=== PATIENT | male | born 1950 | race Caucasian/White ===

== ENCOUNTER 2022-04-17 10:04 | Inpatient (IN) | payer MEDICARE ==
[2022-04-17] MEDS ORDERED: Acetaminophen 325 MG TAB PO PRN (11:02)
[2022-04-17] MEDS ORDERED: Ondansetron PF 4 MG/2 ML Vial IVP PRN (11:02)
[2022-04-17 11:09] VITALS: BMI 34.9
[2022-04-17 11:57] LABS: Anion Gap 20 mmol/L (10-20); BUN (Urea Nitrogen) 25 mg/dL (8.4-25.7); Calc. Creatinine Clearance 126 mL/min (70-130); Calcium 8.8 mg/dL (7.8-10.44); Carbon Dioxide 22 mmol/L (23-31); Chloride 97 mmol/L (98-107); Estimated GFR 96; Glucose 118 mg/dL (80-115); Magnesium 2.1 mg/dL (1.6-2.6); Potassium 3.6 mmol/L (3.5-5.1); Sodium 135 mmol/L (136-145)
[2022-04-17] MEDS ORDERED: Potassium Chloride 20 MEQ TAB PO SCH ×2 (12:00→14:15)
[2022-04-17] MEDS: Furosemide 20 MG/2 ML VIAL SLOW IVP SCH (14:00)
[2022-04-17 16:16] LABS: Anion Gap 17 mmol/L (10-20); BUN (Urea Nitrogen) 25 mg/dL (8.4-25.7); Calc. Creatinine Clearance 131 mL/min (70-130); Calcium 8.9 mg/dL (7.8-10.44); Carbon Dioxide 25 mmol/L (23-31); Chloride 98 mmol/L (98-107); Estimated GFR 97; Glucose 112 mg/dL (80-115); Potassium 3.6 mmol/L (3.5-5.1); Sodium 136 mmol/L (136-145)
[2022-04-17] MEDS: Potassium Chloride 20 MEQ TAB PO SCH ×2 (21:30→23:31)
[2022-04-17] MEDS: Apixaban 5 MG TAB PO SCH (21:33)
[2022-04-18 01:33] LABS: Anion Gap 16 mmol/L (10-20); BUN (Urea Nitrogen) 26 mg/dL (8.4-25.7); Calc. Creatinine Clearance 125 mL/min (70-130); Calcium 9.1 mg/dL (7.8-10.44); Carbon Dioxide 26 mmol/L (23-31); Chloride 97 mmol/L (98-107); Estimated GFR 96; Glucose 113 mg/dL (80-115); Potassium 4.1 mmol/L (3.5-5.1); Sodium 135 mmol/L (136-145)
[2022-04-18 05:26] LABS: Anion Gap 16 mmol/L (10-20); BUN (Urea Nitrogen) 25 mg/dL (8.4-25.7); Calc. Creatinine Clearance 135 mL/min (70-130); Calcium 8.9 mg/dL (7.8-10.44); Carbon Dioxide 25 mmol/L (23-31); Chloride 98 mmol/L (98-107); Estimated GFR 98; Glucose 112 mg/dL (80-115); Potassium 4.1 mmol/L (3.5-5.1); Sodium 135 mmol/L (136-145)
[2022-04-18 05:37] LABS: #Basophils 0.1 10x3/uL (0.0-0.2); #Eosinphils 0.1 10x3/uL (0.0-0.5); #Monocytes 0.8 10x3/uL (0.0-1.1); %Basophils 0.6 % (0.0-2.0); %Eosinophils 0.7 % (0.0-6.0); %Lymphocytes 10.4 % (18.0-47.0); %Neutrophils 78.7 % (40.0-75.0); Hemoglobin 13.3 g/dL (13.5-17.5); Mean Corpuscular Hemoglobin 28.4 pg (27.0-33.0); Mean Corpuscular Volume 86.1 fl (81.2-95.1); Platelet Count 468 10x3/uL (150-450); RBC Distribution Width 12.7 % (11.5-14.5); Red Blood Cell (RBC) Count 4.68 10x6/uL (4.32-5.72); White Blood Cell (WBC) Count 8.8 10x3/uL (3.5-10.5)
[2022-04-18] MEDS: Furosemide 20 MG/2 ML VIAL SLOW IVP SCH ×2 (06:49→15:01)
[2022-04-18] MEDS ORDERED: Potassium Chloride 20 MEQ TAB PO SCH (08:15)
[2022-04-18] MEDS ORDERED: Digoxin 0.5 MG/2 ML AMP SLOW IVP SCH (08:15)
[2022-04-18] MEDS: Apixaban 5 MG TAB PO SCH ×2 (09:09→21:11)
[2022-04-18] MEDS: Diltiazem 125 MG, Admixture Fee 1 EACH in Sodium Chloride 0.9% 100 ML IVPB SCH (12:40)
[2022-04-19 04:50] LABS: #Basophils 0.1 10x3/uL (0.0-0.2); #Eosinphils 0.1 10x3/uL (0.0-0.5); #Monocytes 0.8 10x3/uL (0.0-1.1); #Neutrophils 6.5 10x3/uL (1.5-8.4); %Basophils 0.8 % (0.0-2.0); %Eosinophils 1.4 % (0.0-6.0); %Lymphocytes 13.5 % (18.0-47.0); %Monocytes 9.1 % (0.0-10.0); Hemoglobin 13.8 g/dL (13.5-17.5); Mean Corpuscular HGB CONC 32.7 g/dL (32.0-36.0); Mean Corpuscular Hemoglobin 28.3 pg (27.0-33.0); Mean Corpuscular Volume 86.5 fl (81.2-95.1); Mean Platelet Volume 8.7 fl (7.4-10.4); Platelet Count 460 10x3/uL (150-450); RBC Distribution Width 12.8 % (11.5-14.5); Red Blood Cell (RBC) Count 4.88 10x6/uL (4.32-5.72); White Blood Cell (WBC) Count 8.7 10x3/uL (3.5-10.5)
[2022-04-19 05:06] LABS: Anion Gap 16 mmol/L (10-20); BUN (Urea Nitrogen) 24 mg/dL (8.4-25.7); Calc. Creatinine Clearance 128 mL/min (70-130); Calcium 8.8 mg/dL (7.8-10.44); Carbon Dioxide 26 mmol/L (23-31); Chloride 100 mmol/L (98-107); Estimated GFR 97; Glucose 104 mg/dL (80-115); Sodium 138 mmol/L (136-145)
[2022-04-19] MEDS: Furosemide 20 MG/2 ML VIAL SLOW IVP SCH (06:15)
[2022-04-19] MEDS ORDERED: Digoxin 0.25 MG TAB PO SCH ×2 (09:00→15:00)
[2022-04-19] MEDS: Apixaban 5 MG TAB PO SCH ×2 (09:30→21:10)
[2022-04-19] MEDS: Diltiazem 125 MG, Admixture Fee 1 EACH in Sodium Chloride 0.9% 100 ML IVPB SCH (18:01)
[2022-04-20 05:02] LABS: #Basophils 0.1 10x3/uL (0.0-0.2); #Eosinphils 0.1 10x3/uL (0.0-0.5); #Monocytes 0.9 10x3/uL (0.0-1.1); %Basophils 0.7 % (0.0-2.0); %Eosinophils 0.5 % (0.0-6.0); %Lymphocytes 9.7 % (18.0-47.0); %Monocytes 8.2 % (0.0-10.0); %Neutrophils 80.5 % (40.0-75.0); Hemoglobin 13.8 g/dL (13.5-17.5); Mean Corpuscular HGB CONC 32.9 g/dL (32.0-36.0); Mean Corpuscular Hemoglobin 28.5 pg (27.0-33.0); Mean Corpuscular Volume 86.6 fl (81.2-95.1); Mean Platelet Volume 8.9 fl (7.4-10.4); Platelet Count 447 10x3/uL (150-450); RBC Distribution Width 12.9 % (11.5-14.5); Red Blood Cell (RBC) Count 4.85 10x6/uL (4.32-5.72); White Blood Cell (WBC) Count 11.2 10x3/uL (3.5-10.5)
[2022-04-20 05:13] LABS: Digoxin 0.56 ng/mL (0.8-2.0)
[2022-04-20 05:15] LABS: Anion Gap 16 mmol/L (10-20); BUN (Urea Nitrogen) 19 mg/dL (8.4-25.7); Calc. Creatinine Clearance 137 mL/min (70-130); Calcium 8.9 mg/dL (7.8-10.44); Carbon Dioxide 26 mmol/L (23-31); Chloride 100 mmol/L (98-107); Estimated GFR 98; Glucose 101 mg/dL (80-115); Sodium 138 mmol/L (136-145)
[2022-04-20] MEDS ORDERED: Digoxin 0.25 MG TAB PO SCH (09:00)
[2022-04-20 10:27] LABS: Magnesium 2.2 mg/dL (1.6-2.6)
[2022-04-20] MEDS ORDERED: Midodrine HCl 2.5 MG TAB PO SCH (11:15)
[2022-04-20] MEDS ORDERED: Diltiazem 125 MG, Admixture Fee 1 EACH in Sodium Chloride 0.9% 100 ML IVPB SCH (11:58)
[2022-04-20] MEDS: Furosemide 20 MG/2 ML VIAL SLOW IVP SCH (13:54)
[2022-04-20] MEDS: Midodrine HCl 2.5 MG TAB PO SCH (20:42)
[2022-04-21 04:33] LABS: #Basophils 0.1 10x3/uL (0.0-0.2); %Basophils 0.5 % (0.0-2.0); %Eosinophils 0.1 % (0.0-6.0); %Lymphocytes 7.3 % (18.0-47.0); %Monocytes 7.1 % (0.0-10.0); %Neutrophils 84.6 % (40.0-75.0); Mean Corpuscular HGB CONC 33.2 g/dL (32.0-36.0); Mean Corpuscular Hemoglobin 28.5 pg (27.0-33.0); Mean Corpuscular Volume 85.9 fl (81.2-95.1); Platelet Count 406 10x3/uL (150-450); RBC Distribution Width 12.9 % (11.5-14.5); Red Blood Cell (RBC) Count 4.91 10x6/uL (4.32-5.72); White Blood Cell (WBC) Count 14.2 10x3/uL (3.5-10.5)
[2022-04-21 04:46] LABS: Anion Gap 15 mmol/L (10-20); BUN (Urea Nitrogen) 17 mg/dL (8.4-25.7); Calc. Creatinine Clearance 128 mL/min (70-130); Calcium 8.9 mg/dL (7.8-10.44); Carbon Dioxide 27 mmol/L (23-31); Chloride 99 mmol/L (98-107); Estimated GFR 97; Glucose 102 mg/dL (80-115); Potassium 4.1 mmol/L (3.5-5.1); Sodium 137 mmol/L (136-145)
[2022-04-21 04:48] LABS: Digoxin 0.84 ng/mL (0.8-2.0)
[2022-04-21] MEDS: Furosemide 20 MG/2 ML VIAL SLOW IVP SCH (06:15)
[2022-04-21] MEDS ORDERED: Furosemide 20 MG/2 ML VIAL SLOW IVP SCH (10:15)
[2022-04-21] MEDS: Midodrine HCl 2.5 MG TAB PO SCH ×3 (10:45→23:53)
[2022-04-21] MEDS: Digoxin 0.25 MG TAB PO SCH (10:46)
[2022-04-21] MEDS ORDERED: Diltiazem 125 MG in Sodium Chloride 0.9% 100 ML IVPB SCH (11:15)
[2022-04-21] MEDS: Furosemide 40 MG/4 ML VIAL SLOW IVP SCH (15:25)
[2022-04-22] MEDS: Furosemide 40 MG/4 ML VIAL SLOW IVP SCH (06:55)
[2022-04-22 07:09] LABS: #Basophils 0.1 10x3/uL (0.0-0.2); #Eosinphils 0.1 10x3/uL (0.0-0.5); #Monocytes 0.9 10x3/uL (0.0-1.1); #Neutrophils 6.4 10x3/uL (1.5-8.4); %Basophils 1.1 % (0.0-2.0); %Eosinophils 0.7 % (0.0-6.0); %Lymphocytes 15.1 % (18.0-47.0); %Monocytes 10.2 % (0.0-10.0); %Neutrophils 72.4 % (40.0-75.0); Hemoglobin 13.6 g/dL (13.5-17.5); Mean Corpuscular HGB CONC 32.6 g/dL (32.0-36.0); Mean Corpuscular Hemoglobin 28.1 pg (27.0-33.0); Mean Corpuscular Volume 86.2 fl (81.2-95.1); Platelet Count 360 10x3/uL (150-450); RBC Distribution Width 13.1 % (11.5-14.5); Red Blood Cell (RBC) Count 4.84 10x6/uL (4.32-5.72); White Blood Cell (WBC) Count 8.9 10x3/uL (3.5-10.5)
[2022-04-22 07:11] LABS: Anion Gap 17 mmol/L (10-20); BUN (Urea Nitrogen) 18 mg/dL (8.4-25.7); Calc. Creatinine Clearance 135 mL/min (70-130); Calcium 8.6 mg/dL (7.8-10.44); Carbon Dioxide 27 mmol/L (23-31); Chloride 99 mmol/L (98-107); Estimated GFR 98; Glucose 97 mg/dL (80-115); Potassium 3.7 mmol/L (3.5-5.1); Sodium 139 mmol/L (136-145)
[2022-04-22 07:27] LABS: Digoxin 0.58 ng/mL (0.8-2.0)
[2022-04-22] MEDS ORDERED: Furosemide 40 MG/4 ML VIAL SLOW IVP SCH (08:00)
[2022-04-22] MEDS: Digoxin 0.25 MG TAB PO SCH (08:17)
[2022-04-22] MEDS: Midodrine HCl 2.5 MG TAB PO SCH ×3 (08:18→21:32)
[2022-04-22] MEDS ORDERED: Sodium Bicarbonate 2.5 MEQ/5 ML VIAL ONE (10:11)
[2022-04-22] MEDS ORDERED: Lidocaine 1% PF 5 ML VIAL ONE (10:11)
[2022-04-22] MEDS: Furosemide 100 MG/10 ML VIAL SLOW IVP SCH (13:16)
[2022-04-23 06:27] LABS: Anion Gap 14 mmol/L (10-20); BUN (Urea Nitrogen) 18 mg/dL (8.4-25.7); Calc. Creatinine Clearance 134 mL/min (70-130); Calcium 8.5 mg/dL (7.8-10.44); Carbon Dioxide 29 mmol/L (23-31); Chloride 99 mmol/L (98-107); Estimated GFR 98; Glucose 101 mg/dL (80-115); Magnesium 2.1 mg/dL (1.6-2.6); Potassium 3.2 mmol/L (3.5-5.1); Sodium 139 mmol/L (136-145)
[2022-04-23] MEDS: Furosemide 100 MG/10 ML VIAL SLOW IVP SCH (06:40)
[2022-04-23] MEDS ORDERED: Potassium Chloride 20 MEQ TAB PO SCH ×3 (08:00→17:00)
[2022-04-23] MEDS: Midodrine HCl 2.5 MG TAB PO SCH ×2 (08:34→14:14)
[2022-04-23] MEDS: Digoxin 0.25 MG TAB PO SCH (08:34)
[2022-04-23 12:28] LABS: Potassium 3.9 mmol/L (3.5-5.1)
[2022-04-23] MEDS ORDERED: Furosemide 40 MG TAB PO SCH (14:00)
[2022-04-23 14:26] VITALS: BP 104/59; TEMP 97.9
[2022-04-23] MEDS ORDERED: Apixaban 5 MG TAB PO SCH (21:00)
== END 2022-04-23 15:30 | disposition home or self-care (01) | DRG 291 ==
LOC: CSHTELE 10:04
PROVIDERS: ADMIT Internal Medicine; ATTEND Internal Medicine
PROC: 0W993ZZ Drainage of Right Pleural Cavity, Percutaneous Approach (ICD-10-PCS; principal; 2022-04-22)
DX: I11.0 Hypertensive heart disease with heart failure (principal); I50.33 Acute on chronic diastolic (congestive) heart failure; J96.01 Acute respiratory failure with hypoxia; I48.19 Other persistent atrial fibrillation; J91.8 Pleural effusion in other conditions classified elsewhere; G47.33 Obstructive sleep apnea (adult) (pediatric); I95.9 Hypotension, unspecified; I45.81 Long QT syndrome; Z79.899 Other long term (current) drug therapy; Z87.891 Personal history of nicotine dependence; Z79.01 Long term (current) use of anticoagulants; Z99.89 Dependence on other enabling machines and devices; J44.9 Chronic obstructive pulmonary disease, unspecified
CPT/HCPCS: 32555; 36415; 71045; 71046; 80048; 80162; 83735; 85025; 93005; 93010; 94760; J1160; J1650; J1940; J3490; U0003; U0005

== ENCOUNTER 2022-05-26 11:28 | Outpatient (CLI) | payer MEDICARE | END 2022-05-26 11:29 | disposition home or self-care (01) | LOC: CSHRAD 11:28 | PROVIDERS: ATTEND Specialist | DX: R06.02 Shortness of breath (principal) | CPT/HCPCS: 71046 ==

== ENCOUNTER 2022-08-05 08:19 | Day surgery (SDC) | payer MEDICARE ==
[2022-08-05] MEDS ORDERED: Lidocaine 1% PF 5 ML VIAL ONE (08:32)
[2022-08-05] MEDS ORDERED: Sodium Bicarbonate 2.5 MEQ/5 ML VIAL ONE (08:32)
[2022-08-05 10:16] VITALS: BP 117/68; TEMP 97.8
== END 2022-08-05 10:10 | disposition home or self-care (01) ==
LOC: CSHULT 08:19
PROVIDERS: ATTEND Specialist
PROC: 0W993ZZ Drainage of Right Pleural Cavity, Percutaneous Approach (ICD-10-PCS; principal; 2022-08-05)
DX: J90 Pleural effusion, not elsewhere classified (principal)
CPT/HCPCS: 71045

== ENCOUNTER 2022-08-19 11:05 | Outpatient (CLI) | payer MEDICARE | END 2022-08-19 11:06 | disposition home or self-care (01) | LOC: CSHRAD 11:05 | PROVIDERS: ATTEND Specialist | DX: J90 Pleural effusion, not elsewhere classified (principal); R91.8 Other nonspecific abnormal finding of lung field | CPT/HCPCS: 71046 ==